=== PATIENT | male | born 1995 | race Caucasian/White ===

== ENCOUNTER 2017-02-03 08:16 | Emergency (ER) | payer OTHER ==
[~2017-02-03] VITALS: Ht 182.9 cm; Wt 100.0 kg
[2017-02-03 08:23] VITALS: BP 142/93; PULSE 88; RESP 16; TEMP 98; O2SAT 96
[2017-02-03] MEDS ORDERED: SODIUM CHLOR 0.9% 1000 ML INJ 1,000 ML IV SCH (08:32)
[2017-02-03 08:35] VITALS: RESP 16; O2SAT 98
[2017-02-03] MEDS ORDERED: SODIUM CHLORIDE 0.9% FLUSH 10 ML FLUSH IV FLUSH PRN (08:45)
[2017-02-03] MEDS ORDERED: KETOROLAC TROMETHAMINE 30 MG/ML (IVP) VIAL IVP ONE (08:45)
[2017-02-03] MEDS ORDERED: SODIUM CHLOR 0.9% 1000 ML INJ 1,000 ML IV ONE (08:45)
[2017-02-03 09:09] LABS: AUTOMATED NEUTROPHIL # 3.6 TH/MM3 (1.8-7.7); BASOPHIL % 0.6 % (0.0-2.0); EOSINOPHIL # 0.2 TH/MM3 (0-0.4); HEMATOCRIT 44.8 % (39.0-51.0); HEMO FLAGS DIFF FINAL; LYMPH % 38.1 % (9.0-44.0); LYMPHOCYTE # 2.9 TH/MM3 (1.0-4.8); MEAN CELL VOLUME 81.5 FL (80.0-100.0); MEAN CORPUSCULAR HEMOGLOBIN 28.3 PG (27.0-34.0); MEAN CORPUSCULAR HGB CONC 34.7 % (32.0-36.0); MONO % 10.2 % (0.0-8.0); NEUT % 48.1 % (16.0-70.0); PLATELET COUNT 229 TH/MM3 (150-450); RED BLOOD COUNT 5.49 MIL/MM3 (4.50-5.90); WHITE BLOOD COUNT 7.5 TH/MM3 (4.0-11.0)
--- NOTE | 2017-02-03 09:24 | RADRPT ---
EXAM DATE/TIME: 02/03/2017 09:06 [place] COMPARISON: No previous studies available for comparison. INDICATIONS : Left flank pain for the past few hours. ORAL CONTRAST: No oral contrast ingested. RADIATION DOSE: 8.53 CTDIvol (mGy) MEDICAL HISTORY : None SURGICAL HISTORY : None. ENCOUNTER: Initial ACUITY: 1 day PAIN SCALE: 10/10 LOCATION: Left flank TECHNIQUE: Volumetric scanning of the abdomen and pelvis was performed. Using automated exposure control and ad justment of the mA and/or kV according to patient size, radiation dose was kept as low as reasonably achievable to obtain optimal diagnostic quality images. FINDINGS: Visualized portions of the liver, spleen and gallbladder are unremarkable. Right kidney, adrenal glan ds, pancreas and stomach are normal. There is mild left-sided nephrosis, mild left edema and hydroure ter identified. At the ureterovesical junction a calculus is present on axial image 151 measuring 5 p oint millimeters. There no signs of bowel obstruction, free fluid or free air. Lung bases are clear. Osseous structures are intact. CONCLUSION: 1. Left UVJ calculus with associated obstruction. Malachi Ac MD on February 03, 2017 at 9:20 Board Certified Radiologist. This report was verified electronically.
[2017-02-03] MEDS ORDERED: MOTR200T4 PO (09:29)
[2017-02-03] MEDS ORDERED: ZOFR4TAB3 SL (09:29)
[2017-02-03] MEDS ORDERED: TAMS5CAP PO (09:29)
[2017-02-03] MEDS ORDERED: TRAM50TA PO (09:29)
--- NOTE | 2017-02-03 09:31 | PD ---
HPI Chief Complaint: Musculoskeletal Complaint Time Seen by Provider: 08:20 Travel History International Travel<30 days: No Contact w/Intl Traveler<30days: No Traveled to known affect area: No History of Present Illness HPI 21-year-old male arrives to the ER complaining of left back pain. Started suddenly about 2 hours prior to ER arrival. He vomited once due to the pain. He received 10 mg of morphine which helped minimally taking from 10 over 10 to a 7/10. It started while he was asleep. No fever. No similar prior pain. PFSH Past Medical History Medical History: Denies Significant Hx Diminished Hearing: No Tetanus Vaccination: Unknown Past Surgical History Surgical History: No Previous Surgery Social History Alcohol Use: No Tobacco Use: No Substance Use: No Allergies-Medications (Allergen,Severity, Reaction): Coded Allergies: Zofran (Verified Adverse Reaction, Unknown, 02/03/17) Reported Meds & Prescriptions Reported Meds & Active Scripts Active Zofran Odt (Ondansetron Odt) 4 Mg Tab 4 Mg SL Q8HR PRN Flomax (Tamsulosin HCl) 0.4 Mg Cap 0.4 Mg PO HS Tramadol (Tramadol HCl) 50 Mg Tab 50 Mg PO Q8H PRN Motrin Ib (Ibuprofen) 200 Mg Tab 600 Mg PO Q6H PRN Review of Systems Except as stated in HPI: all other systems reviewed are Neg General / Constitutional: No: Fever Physical Exam Narrative GENERAL: 21-year-old male well-nourished developed mild distress SKIN: Focused skin assessment warm/dry. HEAD: Atraumatic. Normocephalic. EYES: Pupils equal and round. No scleral icterus. No injection or drainage. ENT: No nasal bleeding or discharge. Mucous membranes pink and moist. NECK: Trachea midline. No JVD. CARDIOVASCULAR: Regular rate and rhythm. No murmur appreciated. RESPIRATORY: No accessory muscle use. Clear to auscultation. Breath sounds equal bilaterally. GASTROINTESTINAL: Tenderness to percussion left flank. Abdomen soft generally. MUSCULOSKELETAL: No obvious deformities. No clubbing. No cyanosis. No edema. No focal tenderness. Left para thoracolumbar tenderness to palpation. NEUROLOGICAL: Awake and alert. No obvious cranial nerve deficits. Motor grossly within normal limits. Normal speech. PSYCHIATRIC: Appropriate mood and affect; insight and judgment normal. Data Data Last Documented VS Vital Signs Date Time Temp Pulse Resp B/P Pulse Ox O2 Delivery O2 Flow Rate FiO2 02/03/17 08:35 16 98 Room Air 02/03/17 08:27 88 02/03/17 08:23 98.0 142/93 Vital signs reviewed Orders Basic Metabolic Panel (Bmp) (02/03/17 08:32) Complete Blood Count With Diff (02/03/17 08:32) Urinalysis - C+S If Indicated (02/03/17 08:32) Ct Abd/Pel W/O Iv Contrast (02/03/17 08:32) Iv Access Insert/Monitor (02/03/17 08:32) Ecg Monitoring (02/03/17 08:32) Oximetry (02/03/17 08:32) Sodium Chlor 0.9% 1000 Ml Inj (Ns 1000 M (02/03/17 08:32) Sodium Chloride 0.9% Flush (Ns Flush) (02/03/17 08:45) Ketorolac Inj (Toradol Inj) (02/03/17 08:45) Sodium Chlor 0.9% 1000 Ml Inj (Ns 1000 M (02/03/17 08:45) Westergren Sedimentation Rate (02/03/17 08:32) Labs Laboratory Tests Test 02/03/17 08:30 White Blood Count 7.5 TH/MM3 Red Blood Count 5.49 MIL/MM3 Hemoglobin 15.5 GM/DL Hematocrit 44.8 % Mean Corpuscular Volume 81.5 FL Mean Corpuscular Hemoglobin 28.3 PG Mean Corpuscular Hemoglobin 34.7 % Concent Red Cell Distribution Width 13.0 % Platelet Count 229 TH/MM3 Mean Platelet Volume 9.0 FL Neutrophils (%) (Auto) 48.1 % Lymphocytes (%) (Auto) 38.1 % Monocytes (%) (Auto) 10.2 % Eosinophils (%) (Auto) 3.0 % Basophils (%) (Auto) 0.6 % Neutrophils # (Auto) 3.6 TH/MM3 Lymphocytes # (Auto) 2.9 TH/MM3 Monocytes # (Auto) 0.8 TH/MM3 Eosinophils # (Auto) 0.2 TH/MM3 Basophils # (Auto) 0.0 TH/MM3 CBC Comment DIFF FINAL Differential Comment Erythrocyte Sedimentation Rate 1 mm/hr Sodium Level 139 MEQ/L Potassium Level 3.4 MEQ/L Chloride Level 103 MEQ/L Carbon Dioxide Level 26.3 MEQ/L Anion Gap 10 MEQ/L Blood Urea Nitrogen 11 MG/DL Creatinine 1.34 MG/DL Estimat Glomerular Filtration 67 ML/MIN Rate Random Glucose 110 MG/DL Calcium Level 8.7 MG/DL MDM Medical Decision Making Medical Screen Exam Complete: Yes Emergency Medical Condition: Yes Differential Diagnosis Gastritis, pancreatitis, appendicitis, acute cholecystitis, ascending cholangitis, AAA, perforated viscous, mesenteric ischemia, hepatitis, cystitis, hydronephrosis/hydroureter/nephroureter calculus, mesenteric adenitis, biliary colic Narrative Course CBC & BMP Diagram 02/03/17 08:30 Last 24 hours Impressions Abdomen/Pelvis CT 02/03/17 0832 Signed Impressions: Service Date/Time: Friday, February 03, 2017 09:06 - CONCLUSION: 1. Left UVJ calculus with associated obstruction. Malachi Ac MD The patient is resting comfortably and feels better, is alert and in no distress. The patients results and examination findings were discussed. The repeat examination is unremarkable and benign. The history, exam, diagnostic testing, and current condition do not suggest any significant pathology to warrant further testing, continued ED treatment, admission, or surgical evaluation at this point. The vital signs have been stable. The patient does not have uncontrollable pain, intractable vomiting, or other significant symptoms. The patient's condition is stable and appropriate for discharge. The patient will pursue further outpatient evaluation with a primary care physician or other designated or consulting physician as indicated in the discharge instructions. The patient expressed understanding and was agreeable with this plan. Diagnosis Primary Impression: Left ureteral calculus Referrals: Eren De Oliveira MD call for appointment Additional Instructions: You have a choice when it comes to health care, and we are glad that you chose [facility]. Hopefully, we have met your expectations on today's visit. You are welcome to return to [facility] at any time, as we are committed to meeting the health care needs of our community. Med/Other Pt SpecificInfo: Prescription(s) given Scripts Ondansetron Odt (Zofran Odt)4 Mg Tab4 Mg SL Q8HR PRN (Nausea/Vomiting) #10 TAB Ref 0 Prov:Art Arriola MD 02/03/17 Tamsulosin (Flomax)0.4 Mg Cap0.4 Mg PO HS #4 CAP Ref 0 Prov:Art Arriola MD 02/03/17 Tramadol 50 Mg Tab50 Mg PO Q8H PRN (PAIN SCALE 6 TO 10) #20 TAB Ref 0 Prov:Art Arriola MD 02/03/17 Ibuprofen (Motrin Ib)200 Mg [id number] Mg PO Q6H PRN (PAIN SCALE 6 TO 10) #30 TAB Ref 0 Prov:Art Arriola MD 02/03/17 Disposition: 01 DISCHARGE HOME Condition: Stable Art Arriola MD Feb 03, 2017 09:31
[2017-02-03 09:38] LABS: BICARBONATE 26.3 MEQ/L (21.0-32.0); POTASSIUM 3.4 MEQ/L (3.5-5.1)
[2017-02-03 10:00] VITALS: BP 120/71; PULSE 88; RESP 16; O2SAT 98
[2017-02-03 11:59] VITALS: RESP 16
[2017-02-03 12:21] LABS: BLOOD, URINE MOD (NEG); COMMENT (UR) CULT NOT INDICATED; CULTURE IF INDICATED CULT NOT INDICATED; GLUCOSE,URINE NEG (NEG); HYALINE CAST, URINE 1 /lpf (RARE); KETONE, URINE NEG (NEG); MUCUS URINE FEW /lpf (OCC); NITRITE,URINE NEG (NEG); PH, URINE 6.5 (5.0-8.5); URINE COLOR YELLOW (YELLW/STRAW)
== END 2017-02-03 12:01 | disposition home or self-care (01) ==
LOC: NEPC 08:16
DX: N20.1 Calculus of ureter (principal); R11.10 Vomiting, unspecified
CPT/HCPCS: 74176; 80048; 81001; 85025; 85652; 96361; 96374; 99284; J1885; J7030